=== PATIENT | male | born 1945 ===

== ENCOUNTER 2017-07-26 07:09 | Day surgery (SDC) | payer MEDICARE ==
[2017-07-26] MEDS ORDERED: Lactated Ringer's 1,000 ML IV ONE (07:46)
[2017-07-26 07:58] VITALS: TEMP 97
[2017-07-26] MEDS ORDERED: Propofol 10 mg/ml Inj (20 ML) ONE (08:46)
[2017-07-26] MEDS ORDERED: Lidocaine 2% MPF (5 ml) Inj ONE (08:46)
[2017-07-26 09:31] VITALS: BP 123/62; PULSE 82; RESP 20; O2SAT 99
== END 2017-07-26 09:35 | disposition home or self-care (01) ==
LOC: H.ENDO 07:09
PROVIDERS: ATTEND Internal Medicine Gastroenterology
DX: Z12.11 Encounter for screening for malignant neoplasm of colon (principal); K64.8 Other hemorrhoids; E11.9 Type 2 diabetes mellitus without complications; I10 Essential (primary) hypertension
CPT/HCPCS: 45378; 82948; J2704; J7120